=== PATIENT | female | born 2000 | race Caucasian/White ===

== ENCOUNTER 2024-05-21 00:02 | Inpatient (IN) | payer OTHER ==
[~2024-05-21] VITALS: Ht 170.2 cm; Wt 154.9 kg
[2024-05-21 02:08] LABS: COVID AG,FIA SOURCE NASAL SWAB
[2024-05-21 02:40] LABS: ANION GAP 9 mmol/L (8-16); CARBON DIOXIDE 31 mmol/L (22-29); CHLORIDE 104 mmol/L (98-107); CREATININE 0.75 mg/dL (0.60-1.30); GLOMERULAR FILTR. RATE CALC > 60 mL/min (>60); GLUCOSE,RANDOM 91 mg/dL (70-110); POTASSIUM 3.9 mmol/L (3.5-5.1); SODIUM SERUM 144 mmol/L (136-145); UREA NITROGEN, BLOOD 5 mg/dL (7-18)
[2024-05-21 02:42] LABS: ALCOHOL, URINE DRUG SCREEN NEGATIVE (NEGATIVE); AMPHET/METH SCREEN,URINE NEGATIVE (NEGATIVE); BARBITURATE SCREEN, URINE NEGATIVE (NEGATIVE); BENZODIAZEPINES SCREEN,URINE NEGATIVE (NEGATIVE); CANNABINOID SCREEN,URINE POSITIVE (NEGATIVE); COCAINE SCREEN,URINE NEGATIVE (NEGATIVE); METHADONE SCREEN, URINE NEGATIVE (NEGATIVE); OPIATE SCREEN,URINE NEGATIVE (NEGATIVE); PHENCYCLIDINE SCREEN,URINE NEGATIVE (NEGATIVE)
[2024-05-21 02:47] LABS: SARS-COV2 (COVID) ANTIGEN,FIA Negative (Negative)
[2024-05-21 02:50] LABS: ALANINE AMINOTRANSFERASE 52 U/L (12-78); ALBUMIN 3.3 g/dL (3.4-5.0); ALKALINE PHOSPHATASE 96 U/L (46-116); ASPARTATE AMINOTRANSFERASE 32 U/L (15-37); BILIRUBIN,TOTAL 0.2 mg/dL (0.1-1.0); TOTAL PROTEIN, SERUM 6.9 g/dL (6.4-8.2)
[2024-05-21 02:53] LABS: BASOPHILS % (AUTO) 0.6 % (0.0-2.0); EOSINOPHILS % (AUTO) 1.1 % (1.0-6.0); HEMOGLOBIN 12.9 g/dL (12.0-16.0); LYMPHOCYTES % (AUTO) 32.1 % (22.0-44.0); MEAN CORPUSCULAR HEMOGLOBIN 33.4 pg (26.0-34.0); MEAN CORPUSCULAR VOLUME 101 fL (80-100); MONOCYTES # (AUTO) 0.8 K/uL (0.1-1.0); MONOCYTES % (AUTO) 8.3 % (2.0-9.0); NEUTROPHILS # (AUTO) 5.4 K/uL (1.8-7.7); NEUTROPHILS % (AUTO) 57.9 % (40.0-70.0); PLATELET COUNT (AUTO) 234 K/uL (150-450); RED BLOOD CELL COUNT(AUTO) 3.85 MIL/uL (4.00-5.20); RED CELL DISTRIBUTION WIDTH 13.2 % (11.5-14.5); WHITE BLOOD COUNT (AUTO) 9.3 K/uL (4.5-11.0)
[2024-05-21 02:58] LABS: ALCOHOL, BLOOD (SERUM) < 3 mg/dL (0-10)
[2024-05-21] MEDS: LORazepam 2 MG TABLET PO ONE (03:50)
[2024-05-21 04:47] LABS: RBC MORPHOLOGY COMMENT ABNORMAL RBC MORPH
[2024-05-21] MEDS: HALOPERIDOL 5 MG TABLET PO PRN (11:47)
[2024-05-21] MEDS: LORazepam 2 MG TABLET PO PRN (11:47)
[2024-05-21 15:39] VITALS: BP 121/52; PULSE 89; RESP 18; TEMP 97.7; O2SAT 100
[2024-05-21] MEDS: ZOLPIDEM TARTRATE 10 MG TABLET PO PRN (20:32)
[2024-05-21 21:09] VITALS: BP 118/58; PULSE 80; RESP 18; TEMP 97; O2SAT 98
[2024-05-22] MEDS ORDERED: CloNIDine HCL 0.1 MG TABLET PO PRN (07:30)
[2024-05-22] MEDS ORDERED: MAGNESIUM HYDROXIDE SUSPENSION 30 ML UDCUP PO PRN (07:30)
[2024-05-22] MEDS ORDERED: LOPERAMIDE HCL 2 MG CAPSULE PO PRN (07:30)
[2024-05-22] MEDS ORDERED: DOCUSATE SODIUM 100 MG CAPSULE PO PRN (07:30)
[2024-05-22] MEDS ORDERED: IBUPROFEN 400 MG TABLET PO PRN (07:30)
[2024-05-22] MEDS ORDERED: PETROLATUM,WHITE 28 GM JELLY TP PRN (07:30)
[2024-05-22] MEDS ORDERED: ACETAMINOPHEN 325 MG TABLET PO PRN (07:30)
[2024-05-22] MEDS ORDERED: ALBUTEROL SULFATE HFA 90 MCG/PUFF 8 GM INHALER IH PRN (07:30)
[2024-05-22] MEDS ORDERED: MAG HYDROX/ALUMINUM HYD/SIMETH ES 30 ML SUSPENSION UDCUP PO PRN (07:30)
[2024-05-22] MEDS ORDERED: ONDANSETRON HCL 4 MG TABLET PO PRN (07:30)
[2024-05-22] MEDS ORDERED: GuaiFENesin/D-METHORPHAN [SUGAR-FREE] 200-20MG/10 ML SYRUP UDCUP PO PRN (07:30)
[2024-05-22] MEDS ORDERED: NICOTINE 14 MG/24 HOUR PATCH TD PRN (07:30)
[2024-05-22 08:21] VITALS: BP 116/79; PULSE 74; RESP 16; TEMP 97.6; O2SAT 97
[2024-05-22 20:20] VITALS: RESP 18
[2024-05-23 08:14] VITALS: BP 150/84; PULSE 100; RESP 18; TEMP 97.9; O2SAT 98
[2024-05-23] MEDS: NICOTINE POLACRILEX 2 MG LOZENGE PO PRN (08:23)
[2024-05-23] MEDS: ESCITALOPRAM OXALATE 10 MG TABLET PO SCH (08:26)
[2024-05-23 08:49] LABS: CHOL/HDL RATIO 2.7 (3.9-5.7); THYROID STIMULATING HORMONE 1.47 uIU/mL (0.36-3.74)
[2024-05-23] MEDS ORDERED: ESCI-8 PO (15:27)
[2024-05-26] MEDS ORDERED: AMPH30TA3 PO (03:47)
== END 2024-05-23 17:00 | disposition home or self-care (01) | DRG 885 ==
LOC: EMS 00:03 → B3A 10:37
PROVIDERS: ADMIT Psychiatry & Neurology Psychiatry; ATTEND Psychiatry & Neurology Psychiatry
DX: F33.2 Major depressive disorder, recurrent severe without psychotic features (principal); Q79.60 Ehlers-Danlos syndrome, unspecified; Z68.43 Body mass index [BMI] 50.0-59.9, adult; R45.851 Suicidal ideations; F12.10 Cannabis abuse, uncomplicated; F60.3 Borderline personality disorder; Z20.822 Contact with and (suspected) exposure to COVID-19; E66.01 Morbid (severe) obesity due to excess calories; F43.10 Post-traumatic stress disorder, unspecified; X78.1XXA Intentional self-harm by knife, initial encounter; Y93.89 Activity, other specified; Y92.89 Other specified places as the place of occurrence of the external cause; Y99.8 Other external cause status
CPT/HCPCS: 80053; 80061; 80307; 83036; 85025; G0480; Q9967

== ENCOUNTER 2025-07-31 20:01 | Emergency (ER) | payer OTHER ==
[~2025-07-31] VITALS: Ht 167.6 cm; Wt 120.6 kg
[~2025-07-31 20:01] MED LIST: AMPH30TA3 PO; ESCI-8 PO
[2025-07-31 21:06] VITALS: TEMP 98.105288
[2025-07-31 21:23] LABS: COVID AG,FIA SOURCE NASAL SWAB
[2025-07-31 21:24] LABS: PLATELET COUNT (AUTO) 246 K/uL (150-450); RED BLOOD CELL COUNT(AUTO) 3.70 MIL/uL (4.00-5.20); RED CELL DISTRIBUTION WIDTH 14.0 % (11.5-14.5); WHITE BLOOD COUNT (AUTO) 8.5 K/uL (4.5-11.0)
[2025-07-31 21:32] LABS: CALCIUM, TOTAL 8.9 mg/dL (8.8-10.5); CREATININE 0.78 mg/dL (0.60-1.30); GLOMERULAR FILTR. RATE CALC > 60 mL/min (>60); GLUCOSE,RANDOM 99 mg/dL (70-110); SODIUM SERUM 142 mmol/L (136-145); UREA NITROGEN, BLOOD 13 mg/dL (7-18)
[2025-07-31 21:44] LABS: SARS-COV2 (COVID) ANTIGEN,FIA Negative (Negative)
[2025-08-01] MEDS: POTASSIUM CHLORIDE 20 MEQ ER TABLET PO ONE (00:22)
[2025-08-01 07:40] VITALS: BP 134/84; PULSE 86; RESP 16; O2SAT 97
== END 2025-08-01 07:57 | disposition home or self-care (01) ==
LOC: EMS 20:26
DX: F32.A Depression, unspecified (principal); F41.9 Anxiety disorder, unspecified; R45.851 Suicidal ideations; F12.90 Cannabis use, unspecified, uncomplicated; Z88.1 Allergy status to other antibiotic agents; Z79.899 Other long term (current) drug therapy; Z20.822 Contact with and (suspected) exposure to COVID-19
CPT/HCPCS: 99284; 87426; 80048; 84703; 85025; G0480